=== PATIENT | female | born 1995 | race Hispanic/Latino ===

== ENCOUNTER 2017-03-14 12:52 | Inpatient (IN) | payer OTHER ==
[~2017-03-14] VITALS: Ht 152.4 cm; Wt 95.0 kg
[2017-03-14] VITALS (14 sets, daily range): BP systolic 118–139; BP diastolic 56–86
[2017-03-14] MEDS ORDERED: CLEOCIN300 MG PO (13:19)
[2017-03-14 14:28] LABS: EOSINOPHIL (%) 1.4 % (0-5); EOSINOPHIL COUNT 0.1 K/uL (0-0.3); HEMATOCRIT 33.2 % (36.0-46.0); IMMATURE GRANULOCYTE (%) 0.6 % (0.0-0.7); IMMATURE GRANULOCYTE COUNT 0.1 K/uL; INSTRUMENT ABS NEUTROPHIL CT 6.2 K/uL; LYMPHOCYTE COUNT 1.6 K/uL (1.0-2.8); MCH 23.6 PG (29.0-34.0); MCHC 31.6 G/DL (30.0-36.0); MCV 74.6 FL (83-99); MEAN PLAT.VOLUME 10.5 uM^3 (9.5-12.4); MONOCYTE (%) 5.3 % (3-12); MONOCYTE COUNT 0.5 K/uL (0-0.8); NEUTROPHIL (%) 73.5 % (45-76); NEUTROPHIL COUNT 6.2 K/uL (1.8-6.4); PLATELET COUNT 426 K/uL (156-360); RBC DIS.WIDTH-CV 14.5 % (11.8-14.6); RBC DIS.WIDTH-SD 38.8 % (39-53); RED BLOOD COUNT 4.45 M/uL (3.80-5.20); WHITE BLOOD COUNT 8.4 K/uL (4.1-10.2)
[2017-03-15] VITALS (24 sets, daily range): BP systolic 107–148; BP diastolic 54–93
[2017-03-15 07:42] LABS: Estimated Average Glucose 131 mg/dL (70-123); HEMOGLOBIN A1c (GLYCOHEMOGLOB) 6.2 % HGB (Below 5.7)
[2017-03-16 07:49] VITALS: BP 116/54
[2017-03-16 08:08] LABS: EOSINOPHIL (%) 0.8 % (0-5); EOSINOPHIL COUNT 0.1 K/uL (0-0.3); HEMATOCRIT 26.3 % (36.0-46.0); IMMATURE GRANULOCYTE (%) 0.7 % (0.0-0.7); IMMATURE GRANULOCYTE COUNT 0.1 K/uL; INSTRUMENT ABS NEUTROPHIL CT 7.6 K/uL; LYMPHOCYTE COUNT 2.2 K/uL (1.0-2.8); MCH 23.4 PG (29.0-34.0); MCHC 30.8 G/DL (30.0-36.0); MEAN PLAT.VOLUME 10.7 uM^3 (9.5-12.4); MONOCYTE (%) 7.1 % (3-12); MONOCYTE COUNT 0.8 K/uL (0-0.8); NEUTROPHIL (%) 70.6 % (45-76); NEUTROPHIL COUNT 7.6 K/uL (1.8-6.4); PLATELET COUNT 361 K/uL (156-360); RBC DIS.WIDTH-CV 14.9 % (11.8-14.6); RBC DIS.WIDTH-SD 40.5 % (39-53); WHITE BLOOD COUNT 10.8 K/uL (4.1-10.2)
[2017-03-16 08:22] LABS: RED BLOOD COUNT 3.46 M/uL (3.80-5.20)
[2017-03-16 14:49] VITALS: BP 106/51
[2017-03-16 23:00] VITALS: BP 126/59
[2017-03-17 07:16] VITALS: BP 102/54
[2017-03-17] MEDS ORDERED: IBUPROFEN800 MG PO (12:07)
[2017-03-17] MEDS ORDERED: FERROUS SULFAT325 MG PO (12:09)
[2017-03-17 14:47] VITALS: BP 128/67
== END 2017-03-17 18:00 | disposition home or self-care (01) | DRG 775 ==
LOC: LDRP-OP → 2WEST 12:55 → LDRP-OP 04-23 12:13
PROVIDERS: Advanced Practice Midwife
PROC: 0HQ9XZZ Repair Perineum Skin, External Approach (ICD-10-PCS; principal; 2017-03-15)
PROC: 10E0XZZ Delivery of Products of Conception, External Approach (ICD-10-PCS; 2017-03-15)
PROC: 10907ZC Drainage of Amniotic Fluid, Therapeutic from Products of Conception, Via Natural or Artificial Opening (ICD-10-PCS; 2017-03-15)
DX: O70.0 First degree perineal laceration during delivery (principal); O77.0 Labor and delivery complicated by meconium in amniotic fluid; Z3A.38 38 weeks gestation of pregnancy; Z37.0 Single live birth; E66.3 Overweight; Z68.41 Body mass index [BMI] 40.0-44.9, adult; O99.214 Obesity complicating childbirth
CPT/HCPCS: 82247; 82248; 82261 90; 82776 90; 83036; 84030 90; 84510 90; 85025; G0378; J0595; J7120; Q0169